=== PATIENT | female | born 1960 | race Hispanic/Latino ===

== ENCOUNTER 2017-01-09 09:07 | Emergency (ER) | payer BC ==
[2017-01-09 09:50] LABS: Eosinophils % (Auto) 2.8 % (0.0-4.3); Hematocrit 41.8 % (30.3-42.9); Hemoglobin 13.8 gm/dl (10.1-14.3); Mean Corpuscular HGB Conc 33 % (30-34); Mean Corpuscular Hemoglobin 30 pg (28-32); Mean Corpuscular Volume 91 fl (79-97); Platelet Count 212 K/mm3 (140-440); Red Cell Distribution Width 13.6 % (13.2-15.2); White Blood Count 8.1 K/mm3 (4.5-11.0)
[2017-01-09 10:17] LABS: Alanine Aminotransferase 20 units/L (7-56); Albumin 4.1 g/dL (3.9-5); Albumin/Globulin Ratio 1.5 %; Alkaline Phosphatase 91 units/L (35-129); Anion Gap 20 mmol/L; BUN/Creatinine Ratio 10; Blood Urea Nitrogen 8 mg/dL (7-17); Calcium 9.5 mg/dL (8.4-10.2); Carbon Dioxide 24 mmol/L (22-30); Chloride 100.9 mmol/L (98-107); Glucose 91 mg/dL (65-100); Lipase 53 units/L (13-60); Potassium 3.7 mmol/L (3.6-5.0); Sodium 141 mmol/L (137-145); Total Protein 6.9 g/dL (6.3-8.2)
[2017-01-09 11:22] LABS: Bilirubin,Urine NEG (Negative); Blood,Urine NEG (Negative); Ketones,Urine NEG (Negative); Leukocyte Esterase,Urine SM (Negative); Nitrite,Urine NEG (Negative); Protein,Urine <15 mg/dL mg/dL (Negative); Urobilinogen,Urine < 2.0 mg/dL (<2.0)
--- NOTE | 2017-01-09 14:41 | Emergency Department Report ---
ED General Adult HPI - General Chief complaint: Abdominal Pain Stated complaint: CHRONIC STOMACH BROBLEMS, N/V, CRAMPING Time Seen by Provider: 01/09/17 14:34 Source: patient Mode of arrival: Ambulatory Limitations: No Limitations - History of Present Illness Initial comments: Patient does not complain of chest pain whatsoever. She complains of very clear and chronic abdominal pain. She describes this as crampy. 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 Apparently she has probably run out of this medicine. She states that she is having problems working due to chronic abdominal pain. She's been in touch with Dr. Chen today she states told her to go to the emergency department. She denies any acute abdominal problem vomiting fever or chills. She states that she had a bowel movement and has chronic constipation. In addition to seeing a pain management physician and ingot passer and Dr. Magana a primary care provider, she states that he had to be admitted to [facility] for detox one year ago. - Related Data Previous Rx's Medication Instructions Recorded Last Taken Type Lubiprostone (Nf) [Amitiza Cap 24 mcg PO BID #60 capsule 01/09/15 Unknown Rx (Nf)] Fluconazole [Diflucan TAB] 150 mg PO ONCE #2 tablet 01/11/15 Unknown Rx Levofloxacin [Levaquin TAB] 500 mg PO QDAY #7 tablet 01/11/15 Unknown Rx HYDROcodone/APAP 5-325 [Schurz 1 each PO Q6HR PRN #7 tablet 01/09/17 Unknown Rx 5/325] Allergies Allergy/AdvReac Type Severity Reaction Status Date / Time phenazopyridine HCl Allergy Itching Unverified 04/01/15 08:54 [From Azo] codeine AdvReac Vomiting Verified 01/11/15 18:45 ketorolac tromethamine AdvReac Shortness Verified 01/11/15 18:45 [From Toradol] of Breath tapentadol HCl [From Nucynta] AdvReac Shortness Verified 01/11/15 18:45 of Breath ED Review of Systems ROS: Stated complaint: CHRONIC STOMACH BROBLEMS, N/V, CRAMPING Other details as noted in HPI ED Past Medical Hx - Past Medical History Previous Medical History?: Yes Hx GERD: Yes Hx Psychiatric Treatment: Yes (ANXIETY ; DEPRESSION) Additional medical history: FIBROMYALGIA. HERNIATED DISC/ BONE SPURS / SCIATICA. CONSTIPATION- IBS. CHRONIC PAIN. HIATAL HERNIA - Surgical History Past Surgical History?: Yes Additional Surgical History: BILATERAL EYE SURGERY-IMPLANTS. ENDOMETRIAL ABLATION X 2. BUNYONECTOMY LEFT FOOT. LEFT ANKLE SURGERY -ORTHO - Social History Smoking Status: Current Every Day Smoker Substance Use Type: None - Medications Home Medications: Home Medications Medication Instructions Recorded Confirmed Last Taken Type Lubiprostone (Nf) [Amitiza Cap 24 mcg PO BID #60 capsule 01/09/15 Unknown Rx (Nf)] Fluconazole [Diflucan TAB] 150 mg PO ONCE #2 tablet 01/11/15 Unknown Rx Levofloxacin [Levaquin TAB] 500 mg PO QDAY #7 tablet 01/11/15 Unknown Rx HYDROcodone/APAP 5-325 [Schurz 1 each PO Q6HR PRN #7 tablet 01/09/17 Unknown Rx 5/325] ED Physical Exam - General Limitations: No Limitations ED Course Vital Signs 01/09/17 01/09/17 09:15 14:41 Temperature 97.3 F L 98.2 F Pulse Rate 106 H 85 Respiratory 18 16 Rate Blood Pressure 149/88 Blood Pressure 99/59 [Right] O2 Sat by Pulse 98 99 Oximetry - Reevaluation(s) Reevaluation #1: The patient's labs physical exam vital signs are not indicative of an emergency medical condition. She is not tachycardic at the time of my encounter. She tells me she thinks that she has "gastritis". 01/09/17 15:18 ED Medical Decision Making - Lab Data Result diagrams: 01/09/17 09:36 01/09/17 09:36 Laboratory Results - last 24 hr 01/09/17 01/09/17 01/09/17 09:36 09:36 10:59 WBC 8.1 RBC 4.60 Hgb 13.8 Hct 41.8 MCV 91 MCH 30 MCHC 33 RDW 13.6 Plt Count 212 Lymph % (Auto) 25.1 [place] % (Auto) 6.5 Eos % (Auto) 2.8 Baso % (Auto) 1.0 Lymph # 2.0 [place] # 0.5 Eos # 0.2 Baso # 0.1 Seg Neutrophils % 64.6 Seg Neutrophils # 5.2 Sodium 141 Potassium 3.7 Chloride 100.9 Carbon Dioxide 24 Anion Gap 20 BUN 8 Creatinine 0.8 Estimated GFR > 60 BUN/Creatinine Ratio 10 Glucose 91 Calcium 9.5 Total Bilirubin 0.30 AST 22 ALT 20 Alkaline Phosphatase 91 Total Protein 6.9 Albumin 4.1 Albumin/Globulin Ratio 1.5 Lipase 53 Urine Color Straw Urine Turbidity Clear Urine pH 6.0 Ur Specific [place] 1.003 Urine Protein <15 mg/dl Urine Glucose (UA) Neg Urine Ketones Neg Urine Blood Neg Urine Nitrite Neg Ur Reducing Substances Not Reportable Urine Bilirubin Neg Urine Ictotest Not Reportable Urine Urobilinogen < 2.0 Ur Leukocyte Esterase Sm Urine WBC (Auto) 4.0 Urine RBC (Auto) 4.0 U Epithel Cells (Auto) < 1.0 Critical care attestation.: If time is entered above; I have spent that time in minutes in the direct care of this critically ill patient, excluding procedure time. ED Disposition Clinical Impression: Chronic abdominal pain Disposition: - TO HOME OR SELFCARE Is pt being admited?: No Does the pt Need Aspirin: No Condition: Stable Instructions: Abdominal Pain (ED), Chronic Pain (ED) Additional Instructions: Your current presentation vital signs and laboratory studies do not suggest that you have a new problem. You are seeing appropriate physicians for urine chronic pain management continued workup of her abdominal pain and primary care. You must follow up with these physicians. You may take Pepcid 20 mg over -the-counter every day for the possibility of gastritis that you were considering. I can only give him a few pain pills to use E your regular physicians tomorrow. Prescriptions: HYDROcodone/APAP 5-325 [Schurz 5/325] 1 each PO Q6HR PRN #7 tablet PRN Reason: Pain Referrals: PRIMARY MD ROSI [Primary Care Provider] - 3-5 Days KELSIE CHEN MD [Staff Physician] - 3-5 Days usual, chronic pain management physician [Other] - 3-5 Days BRENDA MAGANA MD [Referring] - 24 Hours Time of Disposition: 15:25
[2017-01-09 14:42] VITALS: BP 99/59
== END 2017-01-09 15:39 | disposition home or self-care (01) ==
LOC: ED 09:07
DX: R10.9 Unspecified abdominal pain (principal); G89.29 Other chronic pain; K21.9 Gastro-esophageal reflux disease without esophagitis; F32.9 Major depressive disorder, single episode, unspecified; F41.9 Anxiety disorder, unspecified; Z88.8 Allergy status to other drugs, medicaments and biological substances; F17.200 Nicotine dependence, unspecified, uncomplicated
CPT/HCPCS: 36415; 80053; 81001; 83690; 85025; 99283